=== PATIENT | female | born 1995 | race Hispanic/Latino ===

== ENCOUNTER 2018-11-10 04:00 | Inpatient (IN) | payer OTHER, SELFPAY ==
[2018-11-09 17:43] LABS: Absolute Lymphocytes (CBC) 1.6 K/uL (0.7-4.9); Absolute Monocytes 0.8 K/uL (0.1-1.3); Absolute Neutrophil 7.5 K/uL (1.8-8.0); Basophils % 0.2 % (0-1.3); Eosinophils % 1.2 % (0-4.4); Lymphocytes % 15.7 % (15.3-44.8); MPV 9.2 fL (7.6-11.3); Monocytes % 8.1 % (3.3-12.3); RBC Red Blood Cell Count 4.16 M/uL (3.86-4.86)
[2018-11-09 17:45] LABS: Urine Appearance CLEAR; Urine Bilirubin NEGATIVE (NEG); Urine Blood NEGATIVE (NEG); Urine Color YELLOW; Urine Glucose NEGATIVE (NEG); Urine Protein NEGATIVE (NEG)
[2018-11-09 17:53] LABS: Protime INR 0.95
[2018-11-09 17:54] LABS: Urine RBC <5 /HPF (NONE SEEN)
[2018-11-09 17:55] LABS: Urine Bacteria <20 /HPF (<20); Urine Culture Reflex Order REFLEXED; Urine Yeast FEW (NONE SEEN)
[~2018-11-10 04:00] MED LIST: METHYLERGONOVINE 0.2MG/ML AMP IM PRN; Ringers Lactate 1,000 ML IV PRN; Ringers Lactate 1,000 ML IV SCH
[2018-11-10] MEDS ORDERED: NA CIT/CITRIC AC 30 ML ORAL UDC PO ONE (04:10)
[2018-11-10] MEDS ORDERED: CEFAZOLIN 2 GM in NA CHLORIDE 0.9% 100 ML IVPB SCH (05:00)
[2018-11-10] MEDS ORDERED: FAMOTIDINE 20 MG/2 ML VIAL IV ONE (05:00)
[2018-11-10] MEDS ORDERED: METOCLOPRAMIDE 10 MG/2mL INJ IV SCH (05:00)
[2018-11-10 05:39] VITALS: BMI 31.8
[2018-11-10] MEDS ORDERED: CEFAZOLIN/SWI 2gm 2 GM/20 ML SYR ONE (06:55)
[2018-11-10] MEDS ORDERED: EPHEDRINE SULF 50 MG/ML VIAL ONE (07:12)
[2018-11-10] MEDS ORDERED: MORPHINE SULFATE/PF 1 MG/ML (10 ML AMP) ONE (07:12)
[2018-11-10] MEDS ORDERED: ONDANSETRON 4 MG/2 ML VIAL ONE (07:13)
[2018-11-10] MEDS ORDERED: OXYTOCIN 10 UNIT/ML ML IV ONE ×2 (07:13→08:04)
[2018-11-10] MEDS ORDERED: NS 0.9% VIAL 10 ML ONE (07:14)
[2018-11-10] MEDS ORDERED: KETOROLAC 30 MG/ML INJ IM PRN (08:34)
[2018-11-10] MEDS ORDERED: ONDANSETRON 4 MG/2 ML VIAL IV PRN (08:34)
[2018-11-10] MEDS ORDERED: KETOROLAC 30 MG/ML INJ IV PRN (08:34)
[2018-11-10] MEDS ORDERED: Oxycodone HCl/Acetaminophen 1 TAB TAB PO PRN (08:34)
[2018-11-10] MEDS ORDERED: BISACODYL 10 MG RECTAL SUPP RECT PRN (08:34)
[2018-11-10] MEDS ORDERED: ACETAMINOPHEN 500 MG TAB PO PRN ×2 (08:34)
[2018-11-10] MEDS ORDERED: CEFAZOLIN/SWI 1gm 1 GM/10 ML SYR IV SCH (08:34)
[2018-11-10] MEDS ORDERED: DIPHENHYDRAMINE 25 MG TAB/CAP PO PRN (08:34)
[2018-11-10] MEDS ORDERED: ONDANSETRON 4 MG (ODT) TAB PO PRN (08:34)
[2018-11-10] MEDS ORDERED: IBUPROFEN 200 MG TAB PO PRN (08:34)
[2018-11-10] MEDS ORDERED: OXYTOCIN/LR 20 UNIT/1,000 ML BAG IV SCH (09:00)
[2018-11-10] MEDS ORDERED: NALOXONE 0.4 MG/ML VIAL IV PRN (09:40)
[2018-11-10] MEDS ORDERED: DIPHENHYDRAMINE 50 MG/ML VIAL IV PRN (10:09)
[2018-11-10] MEDS ORDERED: METOCLOPRAMIDE 10 MG/2mL INJ IV PRN (10:09)
[2018-11-10] MEDS ORDERED: Ringers Lactate 2,000 ML IV ONE (10:40)
[2018-11-10] MEDS: D5LR 1,000 ML with OXYTOCIN 20 UNIT IV SCH ×2 (12:58)
--- NOTE | 2018-11-10 14:21 | PREOPHP ---
Date of Admission: 11/10/2018 History Of Present Illness: A 23-year-old 2, para 1, previous , for repeat C-sectio n. Infection; blood loss; anesthetic complications, injury to bladder, bowel, ureter; postoperative complications; clots in legs, pneumonia discussed. The patient knows fully well this does not consti tute all the possible problems that could occur during or following surgery. Family history is negat silvestre. Beta strep is negative. Ultrasound has demonstrated no signs of placenta accreta. Maternal gr andmother with lymphoma possibly, not sure. Allergies: SHE HAS NO ALLERGIES. Medications: No medicines prior to admission other than vitamins and iron. Physical Examination: HEENT: Clear. Pupils equal, round, and reactive to light and accommodation. Conjunctivae well perf used. No oral, lingual, or buccal lesions. Chest and Lungs: Clear. Heart: Without murmurs, thrills, heaves, or rubs. Abdomen: Baby is vertex, low in the pelvis, probably in the 7-1/2 to 8-pound range. Extremities: Clear without edema, cyanosis, or clubbing. We will proceed with repeat section tomorrow morning. She knows not to eat or drink past mi dnight tonight. KEI/SHERI Voice ID: [id number]
[2018-11-10] MEDS ORDERED: CEFAZOLIN/SWI 1gm 1 GM/10 ML SYR IVP ONE (17:15)
[2018-11-10] MEDS ORDERED: CEFAZOLIN/SWI 1gm 1 GM/10 ML SYR IVP SCH (17:15)
--- NOTE | 2018-11-10 18:32 | OP ---
Surgeon: Vladimir Mark MD Indications: This is a 23-year-old 2, para 1, repeat section at 39 weeks. Full pre operative counseling concerning procedure and possible complications, including infection, blood loss , anesthetic complications, injury to bladder, bowel, ureter, postoperative complications, clots in l egs, and pneumonia. The patient knows fully well this does not constitute all the possible problems that could occur during or following surgery. Anesthesia: Spinal block anesthesia, Dr. Aparicio. Automatic Seamer Surgeon: Dr. Joshi. Procedure In Detail: Time-out performed prior to beginning the procedure. Low transverse uterine in cision created over the previous incision site. Incision carried to the fascia. The fascia was inci sed and incision carried transversely bilaterally. Anterior and posterior fascial planes were develo ped with both blunt and sharp dissection. Underlying rectus muscles were already . Periton eal defect was encountered and entered. Low transverse uterine incision created. A 6-pound 13-ounce male was delivered without difficulties. Apgars 8 and 9. Cord blood specimen was obtained. Placenta was removed manually. Uterus cleared of clot and blood and exteriorized. Cervical os was dilated with ring clamp. Uterus closed with a running locked stitch of 1 chromic followed by several [id number] stitches along the suture line for complete hemostasis. Estimated blood loss 800-85 0 cc. After suturing the incision of the uterus, the gutters were clear of clot and blood. Uterus w as replaced in the peritoneal cavity. Inspection of the suture line showed no further bleeding. At this point, the muscles were reapproximated using 0 Vicryl 3 stitches. A [id number]-qo-myldz stitch was placed in the right side to reapproximate the muscle and the fascia, at that point, a small defect, m aybe 1 cm. Then the fascia was closed using 1 Vicryl running from either angle to the midline. Subc utaneous stitches placed with 2-0 plain, absorbable jose, and then metal jose. The patient has been given 2 g of Ancef. Tolerated all procedures well. Transferred back to her room in good condi tion. Final Diagnoses: Repeat section at 39 weeks. Very thin lower uterine segment. Spinal bloc k anesthesia. NBC/MODL Voice ID: [id number] Report ID: [id number]
[2018-11-11] MEDS: D5LR 1,000 ML with OXYTOCIN 20 UNIT IV SCH ×2 (00:22)
--- NOTE | 2018-11-11 07:46 | PN ---
Postoperatively, the patient has done quite well. Lochia is normal. H and H with minimal change. V ital signs are all stable. We will discontinue her Waters and IV. Start ambulation. She can take a shower later this afternoon. If all goes well, home tomorrow morning. Full discussion with the ozzy ent about what to do at home as far as continuing ambulation. KEI/SHERI Voice ID: [id number] Report ID: [id number]
[2018-11-11] MEDS ORDERED: MAGNESIUM HYDROXIDE 8% 30 ML PO PRN (08:34)
[2018-11-12 07:47] VITALS: BP 103/62; TEMP 98
--- NOTE | 2018-11-12 08:14 | DS ---
A 23-year-old 3, para 2, 2 previous C-sections in [place], repeat section at 39 weeks , delivered of a 6- pound, 13-ounce male infant, Apgars 8 and 9. Thin lower uterine segment. Spinal block anesthesia. 800 to 850 cc blood loss. Ancef used for prophylaxis. Postoperatively, the ozzy ent has done quite well, is afebrile, ambulating, voiding. Lochia is normal. She is dismissed with tramadol for analgesia, although she may elect to take Motrin instead. She is to call my office for a followup visit early next week to remove her jose. She has no post spinal block problems. She has had her Tdap immunization during the . Final Diagnoses: Term intrauterine . Repeat section. Spinal block anesthesia. V lilly thin lower uterine segment. KEI/SHERI Voice ID: [id number] Report ID: [id number]
== END 2018-11-12 10:50 | disposition home or self-care (01) | DRG 788 ==
LOC: 2ND-WC 04:00
PROVIDERS: ADMIT Specialist; ATTEND Specialist
PROC: 10D00Z1 Extraction of Products of Conception, Low, Open Approach (ICD-10-PCS; principal; 2018-11-10 07:30)
DX: O34.211 Maternal care for low transverse scar from previous cesarean delivery (principal); Z3A.39 39 weeks gestation of pregnancy; Z37.0 Single live birth
CPT/HCPCS: 36415; 81001; 85014; 85025; 85610; 85730; 86850; 86900; 86901; 87086; 87088; 88307; J0690; J2405; J2590; J2765